=== PATIENT | male | born 1990 | race Caucasian/White ===

== ENCOUNTER 2024-08-31 05:15 | Inpatient (IN) | payer BC ==
[2024-08-31] MEDS: Ketorolac 15 MG/ML SDV IVPUSH ONE (06:39)
[2024-08-31] MEDS: Sodium Chloride 0.9% 1,000 ML IV ONE ×3 (06:39→10:00)
[2024-08-31] MEDS: Sodium Chloride 0.9% 10 ML Syringe FLUSH PRN (06:44)
[2024-08-31 06:50] LABS: A/G RATIO 0.8 (1-2); ALBUMIN 3.1 g/dl (3.4-5.0); ANION GAP 16.8 (5-15); BILIRUBIN TOTAL 2.9 mg/dL (0.2-1.0); BUN/CREATININE RATIO 10.9 (14-18); CALCIUM 8.3 mg/dL (8.5-10.1); CREATININE 2.3 mg/dL (0.7-1.3); EST CRCL DRUG DOSING (CG) 50.14 mL/min; POTASSIUM,K 3.8 mEq/L (3.5-5.1); PROTEIN TOTAL,TP 7.2 g/dl (6.4-8.2)
[2024-08-31 06:51] LABS: BASOPHILS ABSOLUTE AUTO 0.1 K/mm3 (0.0-0.2); BASOPHILS PERCENT AUTO 0.8 % (0.0-1.0); HEMATOCRIT 41.6 % (42.0-52.0); HEMOGLOBIN 14.4 gm/dl (14.0-18.0); IMMATURE GRAN ABSOLUTE AUTO 0.01 K/mm3 (0.00-0.05); IMMATURE GRAN PERCENT AUTO 0.1 % (0.0-0.4); LYMPHOCYTES ABSOLUTE AUTO 2.7 K/mm3 (1.0-4.8); LYMPHOCYTES PERCENT AUTO 36.4 % (24.0-44.0); MEAN CORPUSCULAR HEMOGLOBIN 29.4 pg (28.0-32.0); MEAN CORPUSCULAR HGB CONC 34.6 g/dl (32.0-36.0); MEAN CORPUSCULAR VOLUME 84.9 fl (83.0-99.0); MEAN PLATELET VOLUME 9.9 fl (9.4-12.4); MONOCYTES ABSOLUTE AUTO 1.1 K/mm3 (0.0-0.8); MONOCYTES PERCENT AUTO 14.4 % (0.0-8.0); NEUTROPHILS ABSOLUTE AUTO 3.6 K/mm3 (1.8-7.7); NEUTROPHILS PERCENT AUTO 48.3 % (41.0-71.0); PLATELET COUNT,PLT 111 K/mm3 (150-400); WHITE BLOOD CELL COUNT,WBC 7.52 K/mm3 (3.9-11.3)
[2024-08-31 06:55] LABS: LACTIC ACID 1.5 mmol/L (0.4-2.0)
[2024-08-31] MEDS: Ondansetron 4 MG/2 ML SDV IVPUSH ONE (07:00)
[2024-08-31 07:21] LABS: SLIDE REVIEW ABNORMAL SMEAR
[2024-08-31 08:10] LABS: APPEARANCE,URINE CLEAR (Clear); BILIRUBIN,URINE 2+ (Negative); COLOR,URINE AMBER (Yellow); GLUCOSE,URINE NEGATIVE (Negative); KETONES,URINE TRACE (Negative); LEUKOCYTE ESTERASE,URINE NEGATIVE (Negative); NITRITE,URINE NEGATIVE (Negative); OCCULT BLOOD,URINE NEGATIVE (Negative); PH,URINE 5.5 (5.0-8.0); PROTEIN,URINE 2+ (Negative)
[2024-08-31 08:29] LABS: AMORPHOUS SEDIMENT,URINE FEW /hpf (NOT SEEN); BACTERIA,URINE MODERATE /hpf (FEW); MUCUS,URINE MANY /hpf (FEW); RBC,URINE 0-5 /hpf (0-5)
[2024-08-31] MEDS: cefTRIAXone 1 GM Vial IVPUSH ONE (09:41)
[2024-08-31] MEDS: Acetaminophen 325 MG Tab PO ONE (12:08)
[2024-08-31] MEDS: oxyCODONE 5 MG Tab PO ONE (12:21)
[2024-08-31] MEDS ORDERED: Ondansetron 4 MG/2 ML SDV IV PRN (13:53)
[2024-08-31] MEDS ORDERED: Albuterol/Ipratropium 3.0-0.5 MG/3 ML Neb Soln NEB PRN (14:00)
[2024-08-31] MEDS: Heparin Sodium 5,000 Units/ML Vial SUBCUT SCH (14:22)
[2024-08-31] MEDS: Sodium Chloride 0.9% 1,000 ML IV SCH (14:22)
[2024-08-31] MEDS: Acetaminophen 325 MG Tab PO PRN (15:57)
[2024-08-31] MEDS: Dextromethorphan HBr 30 MG/5 ML Susp ML PO PRN (21:17)
[2024-08-31] MEDS: Calcium Carbonate 500 MG Tab.Chew PO PRN (21:17)
[2024-08-31] MEDS: oxyCODONE 5 MG Tab PO PRN (21:18)
[2024-09-01 04:22] LABS: HEMATOCRIT 36.4 % (42.0-52.0); HEMOGLOBIN 12.3 gm/dl (14.0-18.0); MEAN CORPUSCULAR HEMOGLOBIN 29.4 pg (28.0-32.0); MEAN CORPUSCULAR HGB CONC 33.8 g/dl (32.0-36.0); MEAN CORPUSCULAR VOLUME 87.1 fl (83.0-99.0); MEAN PLATELET VOLUME 9.9 fl (9.4-12.4); PLATELET COUNT,PLT 104 K/mm3 (150-400); RED BLOOD CELL COUNT 4.18 M/mm3 (4.52-5.90); WHITE BLOOD CELL COUNT,WBC 7.97 K/mm3 (3.9-11.3)
[2024-09-01 04:39] LABS: A/G RATIO 0.7 (1-2); ALBUMIN 2.6 g/dl (3.4-5.0); ANION GAP 10.9 (5-15); BILIRUBIN TOTAL 1.4 mg/dL (0.2-1.0); BUN/CREATININE RATIO 13.3 (14-18); C-REACTIVE PROTEIN 9.65 mg/dL (<0.30); CALCIUM 7.9 mg/dL (8.5-10.1); CREATININE 1.5 mg/dL (0.7-1.3); EST CRCL DRUG DOSING (CG) 76.88 mL/min; POTASSIUM,K 3.9 mEq/L (3.5-5.1); PROTEIN TOTAL,TP 6.1 g/dl (6.4-8.2)
[2024-09-01] MEDS: cefTRIAXone 2 GM Vial IVPUSH SCH (08:07)
[2024-09-01] MEDS: Azithromycin 500 MG in Sodium Chloride 0.9% 250 ML IV SCH (08:07)
[2024-09-02 05:53] LABS: HEMATOCRIT 35.4 % (42.0-52.0); HEMOGLOBIN 12.1 gm/dl (14.0-18.0); MEAN CORPUSCULAR HEMOGLOBIN 29.4 pg (28.0-32.0); MEAN CORPUSCULAR HGB CONC 34.2 g/dl (32.0-36.0); MEAN CORPUSCULAR VOLUME 85.9 fl (83.0-99.0); MEAN PLATELET VOLUME 9.2 fl (9.4-12.4); PLATELET COUNT,PLT 135 K/mm3 (150-400); RED BLOOD CELL COUNT 4.12 M/mm3 (4.52-5.90); WHITE BLOOD CELL COUNT,WBC 7.41 K/mm3 (3.9-11.3)
[2024-09-02 06:06] LABS: A/G RATIO 0.7 (1-2); ALBUMIN 2.6 g/dl (3.4-5.0); ANION GAP 13.8 (5-15); C-REACTIVE PROTEIN 5.62 mg/dL (<0.30); CALCIUM 8.2 mg/dL (8.5-10.1); EST CRCL DRUG DOSING (CG) 115.32 mL/min; POTASSIUM,K 3.8 mEq/L (3.5-5.1); PROTEIN TOTAL,TP 6.3 g/dl (6.4-8.2)
== END 2024-09-02 10:15 | disposition home or self-care (01) | DRG 720 ==
LOC: JD.ED 05:15 → JD.MS 11:42
PROVIDERS: ADMIT Internal Medicine; ATTEND Family Medicine
DX: A41.89 Other specified sepsis (principal); J96.01 Acute respiratory failure with hypoxia; N17.9 Acute kidney failure, unspecified; J15.9 Unspecified bacterial pneumonia; R65.20 Severe sepsis without septic shock; H54.7 Unspecified visual loss; K21.9 Gastro-esophageal reflux disease without esophagitis; E66.9 Obesity, unspecified; F90.9 Attention-deficit hyperactivity disorder, unspecified type; I10 Essential (primary) hypertension; N39.0 Urinary tract infection, site not specified; F17.210 Nicotine dependence, cigarettes, uncomplicated; R74.8 Abnormal levels of other serum enzymes; E86.0 Dehydration; Z79.899 Other long term (current) drug therapy; Z68.41 Body mass index [BMI] 40.0-44.9, adult; Z86.16 Personal history of COVID-19; Z98.890 Other specified postprocedural states
CPT/HCPCS: 36415; 71045; 71045-26; 74176; 74176-26; 80053; 81001; 83605; 85025; 85027; 86140; 86308; 87040; 87086; 87428-QW; 87651-QW; 94761; 99285; A9270-GY; J0456; J0696; J1644; J1885; J2405; J7030